=== PATIENT | female | born 1940 | race Two or more races ===

== ENCOUNTER 2025-09-04 10:01 | Outpatient (CLI) | payer OTHER | END 2025-09-04 10:11 | disposition home or self-care (01) | LOC: RAD 10:01 | PROVIDERS: ATTEND Orthopaedic Surgery | DX: S52.612A Displaced fracture of left ulna styloid process, initial encounter for closed fracture (principal); S52.532A Colles' fracture of left radius, initial encounter for closed fracture ==

== ENCOUNTER 2025-09-18 09:03 | Outpatient (CLI) | payer OTHER | END 2025-09-18 09:09 | disposition home or self-care (01) | LOC: RAD 09:03 | PROVIDERS: ATTEND Orthopaedic Surgery | DX: S52.612A Displaced fracture of left ulna styloid process, initial encounter for closed fracture (principal); X58.XXXA Exposure to other specified factors, initial encounter; Y93.9 Activity, unspecified; Y92.9 Unspecified place or not applicable; Y99.9 Unspecified external cause status ==

== ENCOUNTER 2025-10-02 10:00 | Outpatient (CLI) | payer OTHER | END 2025-10-02 10:07 | disposition home or self-care (01) | LOC: RAD 10:00 | PROVIDERS: ATTEND Orthopaedic Surgery | DX: S52.612A Displaced fracture of left ulna styloid process, initial encounter for closed fracture (principal) ==